=== PATIENT | female | born 1975 | race American Indian/Alaskan Native ===

== ENCOUNTER 2020-07-19 22:18 | Emergency (ER) | payer SELFPAY ==
--- NOTE | 2020-07-19 22:36 | Emergency Department Report ---
ED CPR HPI - General Stated Complaint: PAULINE Time Seen by Provider: 07/19/20 22:30 Source: EMS Mode of arrival: Stretcher Limitations: Other (cardiac arrest) - History of Present Illness Initial Comments: Chief complaint: Respiratory distress HPI: This is a 45-year-old female without any significant past medical history according to EMS who presents to the emergency department severe shortness of breath. EMS was called. Patient called 9 09/04/2009 immediately hung up the phone. First responders placed patient on nasal cannula. She was sitting on her porch and obvious respiratory distress. Paramedics noted obvious wheezing. In route, patient went in and out of consciousness. She was unable to tolerate CPAP. Once patient arrived to the emergency department, EMS realized that patient was no longer breathing. I was called to the room at that time. Patient told EMS that she did not have any past medical history. EMS blood pressure 260/120. Oxygen saturation 77% on room air. MD Complaint: stopped breathing Place: other (Shortness of breath began at home, patient stopped breathing in the emergency department) Initial Findings in the Field: lethargic (In and out of consciousness) Associated Symptoms: shortness of breath ED Review of Systems ROS: Stated complaint: PAULINE Other details as noted in HPI Comment: Unobtainable due to pts medical conditions (Cardiopulmonary arrest) ED Past Medical Hx - Past Medical History Previous Medical History?: No - Surgical History Additional Surgical History: Unable to be obtained - Social History Smoking Status: Unknown if ever smoked Substance Use Type: Other (Unable to be obtained) ED Physical Exam - General General appearance: other (Not responsive, no respiratory effort, no spontaneous movement) - Head Head exam: Present: atraumatic, normocephalic - Eye Pupils: Present: other (Fixed dilated pupils) - ENT ENT exam: Present: other (Pale cyanotic mucosa) - Neck Neck exam: Present: normal inspection - Respiratory Respiratory exam: Present: other (No respiratory effort) - GI/Abdominal GI/Abdominal exam: Present: soft, hernia (Large ventral hernia). Absent: distended - Extremities Exam Extremities exam: Present: normal inspection, other (No pedal edema) - Neurological Exam Neurological exam: Present: other (Lifeless no spontaneous movement) - Psychiatric Psychiatric exam: Present: other (Lifeless no spontaneous movement) - Skin Skin exam: Present: pallor. Absent: rash - IO Left Tibia Consent Obtained: emergent situation Time Out Performed: No IO Instrument Used to Penetrate the Cortex: battery powered IO drill Patient Tolerated Procedure: well Complications: none ED Medical Decision Making - Medical Decision Making When I arrived to the room EMS paramedics were transferring patient to hospital stretcher. Patient was not breathing. Patient did not have any spontaneous respirations. We immediately began chest compressions. I inserted rapid EZ IO in the left tibia. ACLS protocol initiated. After initial round of medications including epinephrine, asystole rhythm seen. Patient received adequate oxygenation with Ambu bag. Oxygen was 100% with Ambu bag ventilation. ACLS was continued including chest compressions, epinephrine, sodium bicarbonate, Accu- Chek, calcium. ROSC was not achieved. Patient had persistent asystole. Time of 2228. Critical care attestation.: If time is entered above; I have spent that time in minutes in the direct care of this critically ill patient, excluding procedure time. ED Disposition Clinical Impression: Cardiopulmonary arrest Disposition: DC-20 Is pt being admited?: No Does the pt Need Aspirin: No Condition: Stable Time of Disposition: 22:37
== END 2020-07-20 03:57 ==
LOC: ED 22:18
DX: I46.9 Cardiac arrest, cause unspecified (principal)
CPT/HCPCS: 92950